=== PATIENT | female | born 1970 | race Caucasian/White ===

== ENCOUNTER 2017-05-18 00:15 | Emergency (ER) | payer MEDICAID ==
[2017-05-18] MEDS ORDERED: metroNIDAZOLE 500 MG Tab PO SCH (02:00)
[2017-05-18] MEDS ORDERED: cefTRIAXone 1,000 MG VIAL IM ONE (02:00)
[2017-05-18] MEDS ORDERED: metroNIDAZOLE 500 MG Tab PO STA (02:04)
--- NOTE | 2017-05-18 02:06 | EDM.PDOC ---
ED HPI GENERAL MEDICAL PROBLEM - General Chief Complaint: Genitourinary Problem Stated Complaint: BURNING WITH URINATION Time Seen by Provider: 05/18/17 00:15 Source of Information: Reports: Patient History Limitations: Reports: No Limitations - History of Present Illness INITIAL COMMENTS - FREE TEXT/NARRATIVE: 47 years old w f came to the ed due to painful urination, vaginal discharge and painful intercourse. No bleeding, no trauma. No fever and chills, no other acute medical issues. BP 145/78 Pulse 80, Temp 36.6 RR 20 Pulse ox. 100. Onset Date: 05/18/17 Onset Time: 01:00 Duration: Hour(s): Location: Reports: Pelvis Quality: Reports: Ache, Burning, Dull, Pressure Severity: Moderate Improves with: Reports: Rest Worsens with: Reports: Movement Context: Reports: Other (painful urination, painful intercourse ) Abdomen Pain Score (Numeric/FACES): 3 pelvic Pain Score (Numeric/FACES): 5 - Related Data Allergies Allergy/AdvReac Type Severity Reaction Status Date / Time No Known Allergies Allergy Verified 05/18/17 02:08 Home Meds: Home Meds Azithromycin [Zithromax] 500 mg PO DAILY #6 tablet 05/18/17 [Rx] Ciprofloxacin HCl [Cipro] 500 mg PO BID #20 tablet 05/18/17 [Rx] Phenazopyridine HCl [Pyridium] 100 mg PO Q8HR #9 tablet 05/18/17 [Rx] ED ROS GENERAL - Review of Systems Review Of Systems: See Below Constitutional: Reports: No Symptoms HEENT: Reports: No Symptoms Respiratory: Reports: No Symptoms Cardiovascular: Reports: No Symptoms Endocrine: Reports: No Symptoms GI/Abdominal: Reports: No Symptoms : Reports: Dysuria, Frequency, Other (vag discharge) Musculoskeletal: Reports: No Symptoms Skin: Reports: No Symptoms Neurological: Reports: No Symptoms Psychiatric: Reports: No Symptoms Hematologic/Lymphatic: Reports: No Symptoms Immunologic: Reports: No Symptoms ED EXAM, GI/ABD - Physical Exam Exam: See Below Exam Limited By: No Limitations General Appearance: Alert, WD/WN, Mild Distress Eyes: Bilateral: Normal Appearance Ears: Normal External Exam Nose: Normal Inspection Throat/Mouth: Normal Inspection Head: Atraumatic, Normocephalic Neck: Normal Inspection, Supple Respiratory/Chest: No Respiratory Distress Cardiovascular: Normal Peripheral Pulses, Regular Rate, Rhythm GI/Abdominal Exam: Normal Bowel Sounds, Soft, Non-Tender, No Organomegaly, No Distention, No Abnormal Bruit, No Mass, Pelvis Stable (Female) Exam: Cervical Discharge, Cervical Fluid, Cervix Motion Tenderness, Vaginal Discharge Rectal (Female) Exam: Deferred Back Exam: Normal Inspection, Full Range of Motion Extremities: Normal Inspection, Normal Range of Motion Neurological: Alert, Oriented, CN II-XII Intact, Normal Cognition, Normal Gait Psychiatric: Normal Affect, Normal Mood Skin Exam: Warm Lymphatic: No Adenopathy Course - Vital Signs Text/Narrative:: 47 years old w f came to the ed due to painful urination, vaginal discharge and painful intercourse. No bleeding, no trauma. No fever and chills, no other acute medical issues. BP 145/78 Pulse 80, Temp 36.6 RR 20 Pulse ox. 100. PE: WNWD W F NAD Pelvic exam: Yellowish creamy vag cervical discharge, Vagina highly inflamed, No CMT, no adnex tenderness Labs: + for clue cells, many WBC UA pos for UTI (jayce hematuria) UCx pending Impression: UTI, Vaginitis, Bacterial Vaginosis Tx: Flagyl, Rocephin, Pyridium Reexam: Improved Plan: D/C with instructions, Prescription for: Cipro and Azithromycin Last Recorded V/S: Last Vital Signs Temp 36.6 C 05/18/17 02:01 Pulse 87 05/18/17 02:01 Resp 20 05/18/17 02:01 BP 145/78 H 05/18/17 02:01 Pulse Ox 100 05/18/17 02:01 - Orders/Labs/Meds Orders: Active Orders 24 hr Category Date Time Status CHLAMYDIA,AND GC BY APTIMA Stat Lab 05/18/17 01:27 Received CULTURE URINE [RM] Stat Lab 05/18/17 09:01 Uncollected Labs: Laboratory Tests 05/18/17 05/18/17 Range/Units 00:30 00:30 Urine Color Yellow (YELLOW) Urine Appearance Cloudy (CLEAR) Urine pH 5.0 (5.0-6.5) Ur Specific [place] 1.030 H (1.010-1.025) Urine Protein Negative (NEGATIVE) mg/dL Urine Glucose (UA) Normal (NEGATIVE) mg/dL Urine Ketones Negative (NEGATIVE) mg/dL Urine Occult Blood Negative (NEGATIVE) Urine Nitrite Negative (NEGATIVE) Urine Bilirubin Negative (NEGATIVE) Urine Urobilinogen 1 H (NEGATIVE) mg/dL Ur Leukocyte Esterase Large H (NEGATIVE) Urine RBC 0-5 (0) Urine WBC 40-50 H (0) Ur Squamous Epith Cells Moderate H (NS,R,O) Urine Bacteria Moderate H (NS) Urine Mucus Moderate H (NS) Urine HCG, Qual Negative (NEGATIVE) Meds: Medications Discontinued Medications Generic Name Dose Route Start Last Admin Trade Name Jean PRN Reason Stop Dose Admin Ceftriaxone Sodium 1,000 mg 05/18/17 02:00 05/18/17 02:22 Rocephin IM 05/18/17 02:01 1,000 mg ONETIME ONE Administration Metronidazole 500 mg 05/18/17 02:00 Flagyl PO Q12H FARIHA Metronidazole 2,000 mg 05/18/17 02:04 05/18/17 02:22 Flagyl PO 05/18/17 02:05 2,000 mg ONETIME STA Administration Phenazopyridine HCl 95 mg 05/18/17 02:12 05/18/17 02:22 Urinary Pain Relief PO 05/18/17 02:13 95 mg ONETIME STA Administration Departure - Departure Time of Disposition: 02:06 Disposition: Home, Self-Care 01 Condition: Fair Clinical Impression: Bacterial vaginal infection Vaginitis Qualifiers: Chronicity: acute Qualified Code(s): N76.0 - Acute vaginitis UTI (urinary tract infection) Qualifiers: Urinary tract infection type: acute cystitis Hematuria presence: without hematuria Qualified Code(s): N30.00 - Acute cystitis without hematuria - Discharge Information Prescriptions: Phenazopyridine HCl [Pyridium] 100 mg PO Q8HR #9 tablet Azithromycin [Zithromax] 500 mg PO DAILY #6 tablet Ciprofloxacin HCl [Cipro] 500 mg PO BID #20 tablet Instructions: Phenazopyridine tablets, Azithromycin tablets, Urinary Tract Infection, Adult, Ciprofloxacin tablets, Vaginitis Referrals: Bonita Parks NP [Primary Care Provider] - Forms: ED Department Discharge, ED Return to Work/School Form Additional Instructions: Please take cipro for your bladder infection and Azithromycin for your vaginitis , pyridium for dysuria. Please f/u, come back if your symptoms get worse acutely - My Orders Last 24 Hours: My Active Orders 05/18/17 01:27 CHLAMYDIA,AND GC BY APTIMA Stat 05/18/17 09:01 CULTURE URINE [RM] Stat - Assessment/Plan Last 24 Hours: My Active Orders 05/18/17 01:27 CHLAMYDIA,AND GC BY APTIMA Stat 05/18/17 09:01 CULTURE URINE [RM] Stat
[2017-05-18] MEDS ORDERED: Phenazopyridine 95 MG Tab PO STA (02:12)
== END 2017-05-18 02:40 | disposition home or self-care (01) ==
LOC: FB.ED 00:15
DX: N30.00 Acute cystitis without hematuria (principal); N76.0 Acute vaginitis; Z79.2 Long term (current) use of antibiotics
CPT/HCPCS: 81001; 81025; 87210; 87491; 87591; 96372; 99283; A9270; J0696

== ENCOUNTER 2017-06-15 05:06 | Emergency (ER) | payer MEDICAID ==
--- NOTE | 2017-06-15 18:33 | EDM.PDOC ---
ED HPI GENERAL MEDICAL PROBLEM - General Chief Complaint: Genitourinary Problem Stated Complaint: VAGINAL DISCHARGES Time Seen by Provider: 06/15/17 05:12 Source of Information: Reports: Patient - Related Data Allergies Allergy/AdvReac Type Severity Reaction Status Date / Time No Known Allergies Allergy Verified 05/18/17 02:08 Home Meds: Home Meds Azithromycin [Zithromax] 500 mg PO DAILY #6 tablet 05/18/17 [Rx] Ciprofloxacin HCl [Cipro] 500 mg PO BID #20 tablet 05/18/17 [Rx] Phenazopyridine HCl [Pyridium] 100 mg PO Q8HR #9 tablet 05/18/17 [Rx] Past Medical History - Past Health History Medical/Surgical History: Denies Medical/Surgical History Social & Family History - Tobacco Use Smoking Status *Q: Never Smoker - Recreational Drug Use Recreational Drug Use: No Course - Orders/Labs/Meds Orders: Active Orders 24 hr Category Date Time Status Pelvic Exam, Set Up [RC] ASDIRECTED Care 06/15/17 05:15 Active Departure - Departure Disposition: Against Medical Advice 07 - Discharge Information Referrals: Payton Torres NP [Primary Care Provider] - Forms: ED Department Discharge - My Orders Last 24 Hours: My Active Orders 06/15/17 05:15 Pelvic Exam, Set Up [RC] ASDIRECTED - Assessment/Plan Last 24 Hours: My Active Orders 06/15/17 05:15 Pelvic Exam, Set Up [RC] ASDIRECTED
--- NOTE | 2017-06-16 09:32 | PCM.SN ---
- Free Text/Narrative Note: 47 y.o f came to the ed the ed because of vaginal discharge. I have spoken to the patient before the nurse has take the vitals. The pt was adviced, she needs a pelvic exam. I did not complete my HPT, ROS and PE. As i wanted to get my stethoscope. Pt was not anymore in the room. Pt eloped
== END 2017-06-15 05:20 | disposition left against medical advice (07) ==
LOC: FB.ED 05:06
DX: Z53.21 Procedure and treatment not carried out due to patient leaving prior to being seen by health care provider (principal)
CPT/HCPCS: 99281